=== PATIENT | male | born 1985 | race Caucasian/White ===

== ENCOUNTER 2020-01-01 19:09 | Emergency (ER) | payer MEDICAID, OTHER ==
[~2020-01-01] VITALS: Ht 195.6 cm; Wt 99.8 kg
[2020-01-01 20:36] VITALS: BP 141/86
[2020-01-01] MEDS ORDERED: LIDOCAINE 1%-EPI 1:100,000 20 ML VIAL TP ONE (21:00)
[2020-01-01] MEDS ORDERED: TDAP [DIPH/PERTUSSIS/TET] 0.5 ML VIAL IM ONE (21:00)
[2020-01-01] MEDS ORDERED: LIDOCAINE 1%-EPI 1:100,000 20 ML VIAL ONE (21:09)
--- NOTE | 2020-01-01 21:15 | NUR ---
pac zep at bedside for i&d
[2020-01-01] MEDS ORDERED: HYDROCODONE/APAP 5/325MG TABLET ONE (21:37)
--- NOTE | 2020-01-01 21:45 | NUR ---
Patient discharged to home in stable condition. Written and verbal after care instructions given. Patient verbalizes understanding of instruction. Pt ambulatory with a steady gait
[2020-01-01] MEDS ORDERED: HYDROCODONE/APAP 5/325MG TABLET PO ONE (22:00)
== END 2020-01-01 21:45 | disposition home or self-care (01) ==
LOC: ER 19:15
DX: L02.414 Cutaneous abscess of left upper limb (principal)
CPT/HCPCS: 10060; 73060; 99283; J3490

== ENCOUNTER 2022-07-17 02:09 | Emergency (ER) | payer OTHER ==
[~2022-07-17] VITALS: Ht 195.6 cm; Wt 107.5 kg
--- NOTE | 2022-07-17 03:45 | NUR ---
BIBS C/O R LOWER MANDIBULAR PAIN POSSIBLE PERIDONTAL ABSCESS X4DAYS.
--- NOTE | 2022-07-17 03:49 | NUR ---
Pt seen by
[2022-07-17] MEDS ORDERED: HYDR-4209 PO (03:52)
[2022-07-17] MEDS ORDERED: TRIA5PAS4 DT (03:52)
[2022-07-17] MEDS ORDERED: HYDROCODONE/APAP 7.5/325MG 1 EACH TABLET PO ONE (04:00)
[2022-07-17] MEDS ORDERED: PENICILLIN G BENZATHINE 2.4 MMU/4 ML ML IM ONE ×2 (04:00→04:09)
[2022-07-17] MEDS ORDERED: HYDROCODONE/APAP 5/325MG TABLET ONE (04:09)
--- NOTE | 2022-07-17 04:18 | NUR ---
Patient discharged to home in stable condition. Written and verbal after care instructions given. Patient verbalizes understanding of instruction.
[2022-07-17 04:22] VITALS: BP 165/113
== END 2022-07-17 04:22 | disposition home or self-care (01) ==
LOC: ER 02:27
DX: K08.89 Other specified disorders of teeth and supporting structures (principal); F17.210 Nicotine dependence, cigarettes, uncomplicated; Z60.2 Problems related to living alone
CPT/HCPCS: 99283; 96372; J0558